=== PATIENT | male | born 1985 | race Caucasian/White ===

== ENCOUNTER → 2024-06-19 | Outpatient (CLI) | payer OTHER ==
--- NOTE | 2024-06-19 14:58 | US ---
EXAMINATION TYPE: US venous doppler duplex LE BI DATE OF EXAM: 06/19/2024 2:41 PM COMPARISON: NONE CLINICAL INDICATION: Male, 38 years old with history of R60.0 LOCALIZED EDEMA R79.89 OTHER SPECIFIED ABNO; Leg edema x 1 month. Patient states not on blood thinners, Pain TECHNIQUE: The lower extremity deep venous system is examined utilizing real time linear array sonog joy with graded compression, color doppler sonography, and spectral doppler. SIDE PERFORMED: Bilateral FINDINGS: VESSELS IMAGED: Common Femoral Vein Deep Femoral Vein Greater Saphenous Vein * Femoral Vein Popliteal Vein Small Saphenous Vein * Proximal Calf Veins (* superficial vessels) Right Leg: Negative for DVT, Color Doppler imaging shows patency of the vessels. Spectral waveforms are within normal limits. Left Leg: Negative for DVT, Color Doppler imaging shows patency of the vessels. Spectral waveforms a re within normal limits. IMPRESSION: No evidence for DVT within the bilateral lower extremities imaged from the groin to the upper calves. [facility], , 06/19/2024 2:56 PM
== END | disposition home or self-care (01) ==
LOC: RADUSWWP 13:51
PROVIDERS: ATTEND Family Medicine
DX: R60.0 Localized edema (principal); R79.89 Other specified abnormal findings of blood chemistry
CPT/HCPCS: 93970